=== PATIENT | male | born 1960 | race Caucasian/White ===

== ENCOUNTER 2024-09-11 14:20 | Outpatient (CLI) | payer MEDICARE, SELFPAY ==
--- NOTE | ~2024-09-11 | MR_ITS ---
MRI of the left knee Clinical history: Acute internal derangement Technique: Coronal proton density and proton density-weighted images, sagittal proton-density and T2 fat-sat images, and axial proton-density fat-saturated images were acquired. Findings: There is increased signal of the ACL with intact fibers. Findings are compatible with mucoi d degenerative change versus ACL sprain or interstitial tear. Posterior cruciate ligament is intact. There is radial tear of the posterior root of the medial meniscus with extensive complex tearing and maceration of the posterior horn and body segments. There is complex, possibly bucket-handle tear of the body segment of the lateral meniscus, with a flipped fragment towards the intercondylar notch (se hernan 4 image 17). There is a focal grade 4 chondral fissure at the medial patellar facet. There is patchy moderate leonie dral malacia the lower lateral tibial plateau. There is high-grade chondromalacia the posterior aspec t of the medial tibial plateau. Extensor mechanism is intact. There is minimal joint effusion with minimal Lombardo's cyst. Impression: Increased signal of the ACL with intact, and normally oriented fibers. Findings could reflect mucoid degenerative signal versus possibly an acute ACL sprain or interstitial tear. Correlate for history o f trauma. Correlate for ACL laxity. Radial tear of the posterior the medial meniscus with additional extensive complex tearing of the pos terior horn and body of medial meniscus, which are largely macerated appearance. Complex, suspected bucket-handle tear of the lateral meniscus with probable flipped fragment towards the intercondylar notch. Tricompartmental chondromalacia, as detailed above. Reviewed, dictated and finalized at location . E AIDE Impression: Increased signal of the ACL with intact, and normally oriented fibers. Findings could reflect mucoid degenerative signal versus possibly an acute ACL sprain o r interstitial tear. Correlate for history of trauma. Correlate for ACL laxity. Radial tear of the posterior the medial meniscus with additional extensive comp odin tearing of the posterior horn and body of medial meniscus, which are largel y macerated appearance. Complex, suspected bucket-handle tear of the lateral meniscus with probable fli pped fragment towards the intercondylar notch. Tricompartmental chondromalacia, as detailed above.
== END 2024-09-11 14:21 | disposition home or self-care (01) ==
PROVIDERS: PCP Family Medicine; Visit Provider Family Medicine Sports Medicine
DX: S83.232A Complex tear of medial meniscus, current injury, left knee, initial encounter (principal); M94.262 Chondromalacia, left knee; X58.XXXA Exposure to other specified factors, initial encounter
CPT/HCPCS: 73721